=== PATIENT | female | born 1965 | race Caucasian/White ===

== ENCOUNTER 2024-04-08 12:47 | Outpatient (CLI) | payer OTHER ==
[2024-04-08 14:21] LABS: Hematocrit 37.6 % (34.9-44.5); Hemoglobin 12.4 g/dL (12.0-15.5); Mean Corpuscular Hemoglobin 29.7 pg (27.0-33.0); Mean Platelet Volume 10.3 fL (7.4-10.4); Platelet Count 271 10x3/uL (150-450); RBC Distribution Width 12.2 % (11.5-14.5); Red Blood Cell (RBC) Count 4.18 10x6/uL (3.90-5.03); White Blood Cell (WBC) Count 8.33 10x3/uL (3.5-10.5)
[2024-04-08 14:25] LABS: Bilirubin Neg (Negative); Blood, Urine 25 (Negative); Clarity Clear (Clear); Glucose, Urine (Dipstick) Normal (Negative); Ketone, Urine Negative (Negative); Leukocyte 25 (Negative); Nitrite Negative (Negative); Protein, Urine (Dipstick) Negative (Neg-Trace); Urobilinogen Normal mg/dL (Less than 2); pH, Urine 6.5 (5.0-9.0)
[2024-04-08 15:53] LABS: Anion Gap 17 mmol/L (10-20); BUN (Urea Nitrogen) 21 mg/dL (9.8-20.1); Calc. Creatinine Clearance 0 mL/min (70-130); Carbon Dioxide 27 mmol/L (22-29); Chloride 101 mmol/L (98-107); Estimated GFR 72; Glucose 100 mg/dL (70-105); Potassium 3.5 mmol/L (3.5-5.1)
[2024-04-08 16:39] LABS: Sodium 139 mmol/L (136-145)
== END 2024-04-08 12:48 | disposition home or self-care (01) ==
LOC: CSHLAB 12:47
PROVIDERS: ATTEND Obstetrics & Gynecology
DX: Z01.818 Encounter for other preprocedural examination (principal); N83.201 Unspecified ovarian cyst, right side
CPT/HCPCS: 80048; 81003; 85027; 93005; 93010